=== PATIENT | female | born 1950 ===

== ENCOUNTER 2023-09-08 06:33 | Day surgery (SDC) | payer MEDICARE, OTHER, SELFPAY ==
--- NOTE | 2023-09-07 11:45 | PTCARENOTE ---
Patient recently hospitalized (08/2023) to [facility] with pneumonia- no recent CXR available for review. Dr. Portillo notified of same- no additional interventions required.
[2023-09-08 14:58] VITALS: BMI 23.1
[2023-09-08 14:59] VITALS: BP 132/72
[2023-09-08] MEDS: NORMOSOL-R 1000 IV (15:17)
[2023-09-08] MEDS: TYLENOL 1000 MG PO (15:19)
[2023-09-08 18:13] VITALS: BP 127/67; BP 132/72
[2023-09-08 18:15] VITALS: BP 126/60
[2023-09-08 18:30] VITALS: BP 132/66
[2023-09-08 18:45] VITALS: BP 140/61
[2023-09-08 19:00] VITALS: BP 152/76
== END 2023-09-08 19:27 | disposition home or self-care (01) ==
LOC: SDS 06:33
PROVIDERS: ATTENDING PHYSICIAN Surgery
DX: K60.5 Anorectal fistula (principal); K62.4 Stenosis of anus and rectum
CPT/HCPCS: 46270; 88304; 93005